=== PATIENT | male | born 1960 | race Two or more races ===

== ENCOUNTER 2025-05-10 09:47 | Outpatient (CLI) | payer OTHER ==
[2025-05-10 10:45] LABS: BASO % 0.4 % (0.1-1.2); EOS # 0.09 (0.04-0.54); EOS % 1.8 % (0.7-7.0); LYMPH # 1.77 (1.18-3.74); LYMPH % 36.0 % (19.3-53.1); MEAN PLATELET VOLUME 10.70 fl (9.4-12.4); MONO # 0.48 (0.24-0.82); MONO % 9.8 % (4.7-12.5); NEUT # 2.54 (1.56-6.13); NEUT % 51.6 % (34.0-71.1); RED CELL DISTRIBUTION WIDTH 12.2 % (11.6-14.4)
[2025-05-10 10:48] LABS: URINE APPEARANCE Clear; URINE BILIRRUBIN Negative (NEGATIVE); URINE BLOOD Negative; URINE COLOR Yellow; URINE GLUCOSE Negative (NEGATIVE); URINE KETONE Trace (NEGATIVE); URINE LEUKOCYTE Negative; URINE NITRATE Negative; URINE PROTEIN Negative (NEGATIVE); URINE UROBILINOGEN 1.0 E.U./dl
[2025-05-10 10:52] LABS: URINE BACTERIA 7.1 uL (0.0-1933); URINE EPITHELIAL CELLS 2.3 uL (0.0-38.8); URINE RBC 5.4 uL (0.0-20.8); URINE WBC 3.6 uL (0.0-23.2)
[2025-05-10 10:54] LABS: URINE CAST 0.00 uL (0.0-1.40)
[2025-05-10 11:30] LABS: ALT/SGPT 25.0 U/L (12-78); AST/SGOT 20.0 U/L (15-37); BILIRUBIN TOTAL 1.54 mg/dL (0.3-1.2); BUN CREA RATIO 14.0 (7.0-25.0); CHOL HDL RATIO 3.4 (0-5.0); CREATININE SERUM 1.4 mg/dL (0.70-1.30); GFR 51.35; GLOBULINA 3.1 G/DL (2.4-3.5); GLUCOSE FASTING 94.0 mg/dL (65-100); HDL 56.0 mg/dl (40-60); LDL 118.0 mg/dl (0-130); OSMOLALITY SERUM 287.0 MOSM/KG (275-295); PROSTATIC SPECIFIC ANTIGEN 2.8 NG/ML (0.010-4.00); T3 UPTAKE 35.0 % (33-40); T4 TOTAL 5.71 UG/DL (4.5-12.1); TSH 0.565 uIU/mL (0.358-3.74); VLDL 13.0 (0-39)
[2025-05-12 10:07] LABS: T3 TOTAL 0.881 ng/ml (0.846-2.02); VITAMIN D3 25 HYDROXY 23.11 ng/ml (30-120)
== END 2025-05-10 09:50 | disposition home or self-care (01) ==
LOC: LAB 09:47
PROVIDERS: ATTEND General Practice
DX: E21.3 Hyperparathyroidism, unspecified (principal); I10 Essential (primary) hypertension; E78.5 Hyperlipidemia, unspecified; R80.8 Other proteinuria; N39.0 Urinary tract infection, site not specified; R19.5 Other fecal abnormalities; E55.9 Vitamin D deficiency, unspecified; E11.65 Type 2 diabetes mellitus with hyperglycemia; I11.9 Hypertensive heart disease without heart failure; N40.0 Benign prostatic hyperplasia without lower urinary tract symptoms